=== PATIENT | female | born 1990 | race Two or more races ===

== ENCOUNTER 2019-06-23 12:33 | Emergency (ER) | payer BC ==
[~2019-06-23] VITALS: Ht 154.9 cm; Wt 53.0 kg
[2019-06-23] MEDS ORDERED: BUSCAPINA (12:54)
[2019-06-23] MEDS ORDERED: IBUP-2028 PO (12:54)
[2019-06-23 14:22] LABS: BASOPHILS % 0.8 % (0.0-2.0); EOSINOPHILS % 0.8 % (0.0-5.0); HEMATOCRIT. 45.7 % (36.0-48.0); HEMOGLOBIN. 15.4 g/dL (12.0-16.0); LYMPHOCYTES % 27.7 % (20.0-50.0); MEAN CORPUSCULAR HEMOGLOBIN 31.4 pg (28.0-32.0); MEAN CORPUSCULAR VOLUME 92.9 fL (81.0-99.0); MEAN PLATELET VOLUME 8.2 fl (7.4-10.4); MONOCYTES % 6.2 % (2.0-8.0); NEUTROPHILS % 64.5 % (40.0-76.0); PLATELET 261 x1000/uL (130-400); RED BLOOD CELL COUNT 4.92 mill/uL (4.2-5.4); RED CELL DISTRIBUTION WIDTH 13.2 % (11.6-14.6)
[2019-06-23 14:29] LABS: CHLORIDE 104 mEq/L (98-107)
[2019-06-23 14:30] LABS: INR 1.1; PROTHROMBIN TIME 10.8 sec (9.6-11.0)
[2019-06-23 14:39] LABS: HCG SCREEN NEGATIVE
[2019-06-23 14:54] LABS: CLARITY URINE CLEAR (CLEAR); COLOR URINE YELLOW (YELLOW); KETONES URINE 2+ (NEGATIVE); LEUKOCYTE ESTERASE URINE NEGATIVE (NEGATIVE); NITRITE URINE NEGATIVE (NEGATIVE); OCCULT BLOOD URINE NEGATIVE (NEGATIVE); PROTEIN URINE NEGATIVE (NEGATIVE); SPECIFIC GRAVITY URINE 1.005 (1.005-1.030); UROBILINOGEN URINE 0.2 E.U./dL (0.2-1.0)
[2019-06-23 16:45] VITALS: BP 129/82
== END 2019-06-23 17:01 | disposition home or self-care (01) ==
LOC: ER 12:33
DX: R10.31 Right lower quadrant pain (principal); Z98.890 Other specified postprocedural states
CPT/HCPCS: 36415; 76705; 76830; 76856; 81003; 84703; 99284